=== PATIENT | female | born 1950 | race Caucasian/White ===

== ENCOUNTER 2024-03-23 18:33 | Emergency (ER) | payer MEDICARE, BC ==
[~2024-03-23] VITALS: Ht 162.6 cm; Wt 57.0 kg
[2024-03-23 18:48] VITALS: BP 147/75; PULSE 76; TEMP 98.2
[2024-03-23 18:51] VITALS: RESP 18; O2SAT 96
[2024-03-23] MEDS ORDERED: NIRM1TAB7 PO (20:37)
== END 2024-03-23 20:45 | disposition home or self-care (01) ==
LOC: ER 18:33
DX: U07.1 COVID-19 (principal); Z79.899 Other long term (current) drug therapy